=== PATIENT | female | born 1970 | race Caucasian/White ===

== ENCOUNTER → 2024-05-08 08:02 | Outpatient (REF) | payer BC, SELFPAY | LOC: HWWDC 08:02 | PROVIDERS: ATTENDING PHYSICIAN Obstetrics & Gynecology; FAMILY PHYSICIAN Family Medicine | DX: Z12.31 Encounter for screening mammogram for malignant neoplasm of breast (principal) | CPT/HCPCS: 77063; 77067 ==

== ENCOUNTER → 2024-07-06 13:59 | Outpatient (REF) | payer BC, SELFPAY | LOC: RAD 13:59 | PROVIDERS: ATTENDING PHYSICIAN Family Medicine | DX: R10.9 Unspecified abdominal pain (principal) | CPT/HCPCS: 76770 ==

== ENCOUNTER → 2024-08-09 10:33 | Outpatient (REF) | payer BC, SELFPAY | LOC: RAD 10:33 | PROVIDERS: ATTENDING PHYSICIAN Urology; FAMILY PHYSICIAN Family Medicine | DX: N20.0 Calculus of kidney (principal); R10.9 Unspecified abdominal pain | CPT/HCPCS: 74176 ==

== ENCOUNTER → 2025-05-04 17:59 | Outpatient (REF) | payer BC, SELFPAY ==
[2025-05-04 18:33] LABS: Hematocrit 35.8 % (37.0-47.0); Hemoglobin 11.1 g/dL (12.0-16.0); Mean Corp Hgb Conc. 31.0 g/dL (33.0-37.0); Mean Corpuscular Volume 84.2 fL (81.0-99.0); Platelet Count 336 10^3/uL (130-400); Red Cell Dist. Width 16.2 % (11.5-14.5)
[2025-05-04 18:53] LABS: ALT (SGPT) 19 U/L (0-35); AST (SGOT) 23 U/L (14-36); Albumin 4.3 g/dl (3.5-5.0); Alkaline Phosphatase 84 U/L (38-126); Blood Urea Nitrogen 15 mg/dl (7-17); Calcium 9.0 mg/dl (8.4-10.2); Carbon Dioxide 30 mmol/L (22-30); Chloride 104 mmol/L (98-107); Glucose 75 mg/dl (70-99); HDL Cholesterol 88 mg/dl; LDL Cholesterol, Calculated 158 mg/dl; Potassium 4.5 mmol/L (3.5-5.1); Sodium 139 mmol/L (135-145); Total Protein 6.8 g/dl (6.3-8.2); Very Low Density Lipoprotein 11 mg/dl (0-30); eGFR > 60.00
[2025-05-04 19:09] LABS: FSH 39.5 mIU/ml
[2025-05-04 19:29] LABS: Ferritin 6.9 ng/ml (11.1-264.0)
[2025-05-04 20:01] LABS: Folate 9.0 ng/ml (2.76-20); Vitamin B12 241 pg/ml (239-931)
[2025-05-05 11:11] LABS: Glycohemoglobin (HgbA1c) 5.5 % (4.0-5.6)
== END ==
LOC: CLAB 17:59
PROVIDERS: ATTENDING PHYSICIAN Nurse Practitioner Family
DX: E87.5 Hyperkalemia (principal); N95.1 Menopausal and female climacteric states; Z13.29 Encounter for screening for other suspected endocrine disorder; Z13.1 Encounter for screening for diabetes mellitus; Z13.21 Encounter for screening for nutritional disorder; Z01.84 Encounter for antibody response examination
CPT/HCPCS: 36415; 80053; 80061; 82607; 82652; 82670; 82728; 82746; 83001; 83002; 83036; 84443; 85027; 86706

== ENCOUNTER → 2025-08-03 15:56 | Outpatient (REF) | payer BC, SELFPAY ==
[2025-08-03 17:30] LABS: Hematocrit 41.4 % (37.0-47.0); Hemoglobin 13.3 g/dL (12.0-16.0); Mean Corp Hgb Conc. 32.1 g/dL (33.0-37.0); Mean Corpuscular Volume 83.8 fL (81.0-99.0); Platelet Count 294 10^3/uL (130-400); Red Cell Dist. Width 16.9 % (11.5-14.5)
[2025-08-03 17:49] LABS: Total Iron Binding Capacity 308 ug/dl (265-497)
[2025-08-03 18:16] LABS: Ferritin 47.9 ng/ml (11.1-264.0)
[2025-08-03 18:30] LABS: Vitamin B12 982 pg/ml (239-931)
== END ==
LOC: CLAB 15:56
PROVIDERS: ATTENDING PHYSICIAN Nurse Practitioner Family
DX: E61.1 Iron deficiency (principal); E53.8 Deficiency of other specified B group vitamins
CPT/HCPCS: 36415; 82607; 82728; 83516; 83550; 85027; 86340

== ENCOUNTER → 2025-08-13 11:18 | Outpatient (REF) | payer BC, SELFPAY | LOC: RAD 11:18 | PROVIDERS: ATTENDING PHYSICIAN Urology; FAMILY PHYSICIAN Nurse Practitioner Family | DX: N20.2 Calculus of kidney with calculus of ureter (principal) | CPT/HCPCS: 76775 ==